=== PATIENT | male | born 1965 | race Caucasian/White ===

== ENCOUNTER 2016-12-19 07:28 | Day surgery (SDC) | payer BC ==
[2016-12-16 13:05] VITALS: BMI 26.0
[2016-12-19] MEDS ORDERED: BUPIVACAINE HCL/EPINEPHRINE/PF 30 ML VIAL IJ ONE (07:48)
[2016-12-19] MEDS ORDERED: EPINEPHrine 1:1,000 1 MG/1 ML - 30ML VIAL (INJECTION) ONE (07:49)
[2016-12-19] MEDS ORDERED: ROPIVACAINE HCL 0.5% 30ML VIAL ONE (08:31)
[2016-12-19] MEDS ORDERED: DEXAMETHASONE SOD PHOSPHATE/PF 10 MG/ML SDV ONE (08:31)
[2016-12-19] MEDS ORDERED: MIDAZOLAM HCL 2 MG/2 ML SINGLE DOSE VIAL ONE ×2 (08:31→10:32)
[2016-12-19] MEDS ORDERED: PROPOFOL 20 ML ONE ×3 (08:55)
--- NOTE | 2016-12-19 09:10 | HP ---
Admitting History and Physical - Admission Chief Complaint: Left shoulder pain, rotator cuff tear History of Present Illness: 51 yo M with ongoing left shoulder pain. Patient states he had surgery twice in the past on his left shoulder. States he reinjured his shoulder and had an MRI showing a rotator cuff tear. Patient states he has some decreased range of motion associated with his pain. He presents today for a planned left shoulder arthroscopy and rotator cuff repair with Dr. Robledo. History Source: Patient Limitations to Obtaining History: No Limitations - Past Medical History ARCHITECTURE INTERN: No: Dementia, Migraine Cardiovascular: No: AFIB, CAD, HTN, Hyperlipdemia Pulmonary: Yes: Asthma Gastrointestinal: Yes: GERD Renal/: No: Renal Failure, Renal Inusuff Heme/Onc: No: Anemia, Bleeding Disorder Musculoskeletal: Yes: Other (Left shoulder pain) Endocrine: No: Diabetes Mellitus, Hyperthyroidism, Hypothyroidism - Past Surgical History Past Surgical History: Yes: Arthrosocopy (left shoulder x2 and right shoulder arthroscopy and rotator cuff repair) - Advance Directives Advance Directives: Yes: Health Care Proxy - Smoking History Smoking history: Never smoked Have you smoked in the past 12 months: No - Alcohol/Substance Use Hx Alcohol Use: Yes (3 GLASSES OF WINE/DAILY) Home Medications - Allergies Allergies/Adverse Reactions: Allergies Allergy/AdvReac Type Severity Reaction Status Date / Time No Known Allergies Allergy Verified 12/19/16 08:18 - Home Medications Home Medications: Ambulatory Orders Albuterol Sulfate [Proair Respiclick] 90 mcg IH PRN PRN 12/16/16 Cetirizine HCl [Zyrtec -] 10 mg PO DAILY 12/16/16 Ibuprofen [Advil -] 200 mg PO PRN 12/16/16 [place]-3 Fatty Acids [Fish Oil] 300 mg PO DAILY 12/16/16 Omeprazole 40 mg PO DAILY 12/16/16 Review of Systems - Review of Systems Constitutional: denies: Chills, Fever HENT: denies: Difficult Swallowing Cardiovascular: denies: Chest Pain, Palpitations Respiratory: denies: Cough, SOB Gastrointestinal: denies: Abdominal Pain, Nausea, Vomiting Genitourinary: reports: No Symptoms. denies: Burning Musculoskeletal: reports: Joint Pain (Left shoulder) Integumentary: denies: Bruising, Rash Neurological: denies: Dizziness, Headache Hematology/Lymphatic: denies: Easily Bruised, Excessive Bleeding Physical Examination Vital Signs: Vital Signs Temperature 98.3 F 12/19/16 08:07 Pulse Rate 76 12/19/16 08:07 Respiratory Rate 16 12/19/16 08:07 Blood Pressure 116/74 12/19/16 08:07 O2 Sat by Pulse Oximetry (%) 100 12/19/16 08:18 Constitutional: Yes: Well Nourished, No Distress Eyes: Yes: WNL HENT: Yes: Atraumatic, Normocephalic Cardiovascular: Yes: Regular Rate and Rhythm Respiratory: Yes: Regular, CTA Bilaterally Gastrointestinal: Yes: WNL, Soft Musculoskeletal: Yes: Joint Stiffness (Left shoulder) Extremities: No: Calf Tenderness Integumentary: Yes: WNL Neurological: Yes: WNL, Alert, Oriented Assessment/Plan 51 yo M presents today for a planned left shoulder arthroscopy and rotator cuff repair with Dr. Robledo.
[2016-12-19] MEDS ORDERED: ONDANSETRON 4 MG/2 ML VIAL ONE (09:51)
[2016-12-19] MEDS ORDERED: DEXAMETHASONE SOD PHOSPHATE 4 MG/1 ML VIAL ONE (09:51)
[2016-12-19] MEDS ORDERED: oxyCODONE HCL 5 MG TABLET PO PRN ×3 (10:23→11:02)
[2016-12-19] MEDS ORDERED: LACTATED RINGERS SOLUTION 1,000 ML IV SCH (10:30)
[2016-12-19] MEDS ORDERED: ONDANSETRON 4 MG/2 ML VIAL IVPUSH PRN (10:56)
[2016-12-19] MEDS ORDERED: oxyCODONE HCL 10 MG SUSTAINED ACTING TABLET PO ONE (11:02)
--- NOTE | 2016-12-19 11:05 | DS ---
Physical Examination Vital Signs: Vital Signs Temperature 98.3 F 12/19/16 08:07 Pulse Rate 76 12/19/16 08:07 Respiratory Rate 16 12/19/16 08:07 Blood Pressure 116/74 12/19/16 08:07 O2 Sat by Pulse Oximetry (%) 100 12/19/16 08:18 Discharge Summary Reason For Visit: ROTATOR CUFF TEAR, LEFT SHOULDER Condition: Good - Instructions Diet, Activity, Other Instructions: Post Operative Instructions: Shoulder Arthroscopy Dr Michelet Robledo 1. Pain following a Shoulder Arthroscopy is variable and can be significant. Some patients will have more pain than others. You have been provided with a prescription for medication that contains a narcotic. You are not allowed to drive while on this medication. You should NOT take Tylenol (Acetaminophen) when taking the pain medication ( it will result in an overdose). Feel free to take medications such as Ibuprofen or Naprosyn in addition to the pain medicine if you do not have any problems with the NSAID class of medications. 2. Apply ice to the shoulder for 15 minutes every hour. You may continue this for as many days as necessary. 3. You may find sleeping on an incline (reclining chair) to be more comfortable for the first few days. 4. You must remain in your sling at all times except when showering. The only exception to this is to allow you to stretch your elbow a few times a day to prevent your hand and forearm from swelling. 5. You are not to use your arm to reach for anything, lift anything or carry anything until instructed otherwise. 6. You may remove the bandages in 48 hours. You may shower at that point. 7. Place band-aids on the sutures after your shower.Do not put any creams or lotions on the incision until after the sutures are removed. 8. Please call the office to schedule a visit to have your sutures removed. 9. If for any reason you believe you may have an infection or are concerned, please feel free to call me. I can be reached through our office number 24 hours a day. 10. Please call our office with any questions; we will review the surgical findings during your post-operative visit. Disposition: HOME - Home Medications Comprehensive Discharge Medication List: Ambulatory Orders Albuterol Sulfate [Proair Respiclick] 90 mcg IH PRN PRN 12/16/16 Cetirizine HCl [Zyrtec -] 10 mg PO DAILY 12/16/16 Ibuprofen [Advil -] 200 mg PO PRN 12/16/16 [place]-3 Fatty Acids [Fish Oil] 300 mg PO DAILY 12/16/16 Omeprazole 40 mg PO DAILY 12/16/16
--- NOTE | 2016-12-19 11:05 | OP ---
Operative Note - Note: Operative Date: 12/19/16 Pre-Operative Diagnosis: left shoulder massive rct Operation: LSA, Massive Rot cuff repair Post-Operative Diagnosis: Same as Pre-op Surgeon: Michelet Robledo Operative Report Dictated: Yes
--- NOTE | 2016-12-19 11:46 | SURG ---
Surgery Mail Courier Note Mail Courier: Natalia Frost PA-C Date of Service: 12/19/16 Diagnosis: left shoulder massive rotator cuff tear Procedure: left shoulder arthroscopy, massive rotator cuff repair I was present for the entirety of the operative procedure. For further detail, please refer to operative report. Visit type - Case Type Case Type: Scheduled Admission - Emergency Emergency Visit: No - New patient This patient is new to me today: Yes Date on this admission: 12/19/16 - Critical Care Critical Care patient: No
[2016-12-19 12:52] VITALS: TEMP 97.9
[2016-12-19] MEDS ORDERED: oxyCODONE HCL 10 MG SUSTAINED ACTING TABLET ONE (12:53)
[2016-12-19 14:08] VITALS: BP 118/72; PULSE 70
--- NOTE | 2016-12-23 16:20 | PATH ---
Surgical Pathology Report Patient Name: LORI MOLINA Med. Rec. #: [id number] /Age/Gender: 1965 (Age: 51) / M Account: [id number] Location: [facility] Taken: 12/19/2016 Received: 12/19/2016 Reported: 12/23/2016 Physicians: Michelet Robledo M.D. Specimen(s) Received SHAVINGS LEFT SHOULDER Clinical History Left rotator cuff tear Final Diagnosis SHOULDER, LEFT, ARTHROSCOPIC SHAVINGS: FIBROSYNOVIAL AND FIBROCARTILAGINOUS TISSUE. Electronically Signed Gail Agrawal M.D. Gross Description Received in formalin, labeled "shavings left shoulder," is a 3.0 x 2.5 x 0.3 cm. aggregate of knowles-yellow soft tissue fragments. A inside sales account representative portion is submitted in one cassette. /12/22/2016 [facility]12/22/2016
== END 2016-12-19 13:30 | disposition home or self-care (01) ==
LOC: FASU 07:28
PROVIDERS: ATTEND Orthopaedic Surgery
PROC: 0LQ24ZZ Repair Left Shoulder Tendon, Percutaneous Endoscopic Approach (ICD-10-PCS; principal; 2016-12-19 09:46)
PROC: 0RNK4ZZ Release Left Shoulder Joint, Percutaneous Endoscopic Approach (ICD-10-PCS; 2016-12-19 09:46)
DX: M75.122 Complete rotator cuff tear or rupture of left shoulder, not specified as traumatic (principal)
CPT/HCPCS: 88304-TC; 94760